=== PATIENT | female | born 1985 | race Caucasian/White ===

== ENCOUNTER 2017-02-01 16:12 | Emergency (ER) | payer BC ==
[~2017-02-01 16:12] MED LIST: FLAGYL PO; FLEXERIL PO; FLEXERIL10 M1 PO; IBUPROFEN PO; NAPROSYN500 MG PO; PROZAC PO
[2017-02-01] MEDS ORDERED: DULOXETINE HCL60 MG PO (16:15)
[2017-02-01] MEDS ORDERED: WELLBUTRIN100 MG PO (16:15)
== END 2017-02-01 16:45 | disposition home or self-care (01) ==
LOC: SED 16:12
DX: J32.9 Chronic sinusitis, unspecified (principal); F17.210 Nicotine dependence, cigarettes, uncomplicated; Z79.899 Other long term (current) drug therapy
CPT/HCPCS: 99283